=== PATIENT | female | born 1950 | race Caucasian/White ===

== ENCOUNTER 2022-10-04 21:14 | Emergency (ER) | payer OTHER ==
[2022-10-04 21:22] VITALS: BP_SYST 89
--- NOTE | 2022-10-04 21:28 | NUR ---
Patient to ER bed 08 to gown for evaluation. Side rails up. Report given to WANDA ROSALES.
--- NOTE | 2022-10-04 21:40 | NUR ---
Dr. ARELLANO at bedside examining the patient.
--- NOTE | 2022-10-04 22:24 | NUR ---
Dr. CHAVARRIA at bedside examining the patient.
[2022-10-04] MEDS ORDERED: NACL 0.9% 1,000 ML IV ONE (22:45)
--- NOTE | 2022-10-04 22:55 | NUR ---
Patient is back from CT.
[2022-10-04 23:06] LABS: BILIRUBIN,URINE NEGATIVE (NEGATIVE); BLOOD, URINE NEGATIVE (NEGATIVE); CLARITY/URINE SL CLOUDY (CLEAR); COLOR,URINE YELLOW (YELLOW); GLUCOSE,URINE NEGATIVE (NEGATIVE); KETONES,URINE TRACE (NEGATIVE); LEUKOCYTE ESTERASE ,URINE NEGATIVE (NEGATIVE); NITRITE, URINE NEGATIVE (NEGATIVE); PROTEIN URINE TRACE (NEGATIVE)
[2022-10-05] MEDS ORDERED: IBUP-1971 PO (00:14)
[2022-10-05 00:15] VITALS: BP_SYST 132
--- NOTE | 2022-10-05 00:27 | NUR ---
Patient given written and verbal discharge instructions and verbalizes understanding. ER MD discussed with patient the results and treatment provided. Patient in stable condition. ID arm band removed. IV catheter removed intact and dressing applied, no active bleeding. Rx of IBUPROFEN given. Patient educated on pain management and to follow up with PMD. Pain Scale 0/10. Opportunity for questions provided and answered. Medication side effect fact sheet provided.
== END 2022-10-05 00:25 | disposition home or self-care (01) ==
LOC: SED 21:14
DX: R20.0 Anesthesia of skin (principal); I10 Essential (primary) hypertension; Z79.899 Other long term (current) drug therapy
CPT/HCPCS: 99284; 96360; 70450; 82962; 76376; 81003; J7030

== ENCOUNTER 2023-07-28 13:48 | Emergency (ER) | payer OTHER ==
[~2023-07-28] VITALS: Ht 152.4 cm; Wt 59.0 kg
[~2023-07-28 13:48] MED LIST: IBUP-1971 PO
[2023-07-28 13:50] VITALS: BP_SYST 110; PULSE 59; RESP 17; TEMP 97; O2SAT 96
[2023-07-28 15:34] LABS: PROTHROMBIN TIME 9.9 SECS (9.5-12.5)
[2023-07-28 15:36] LABS: ANION GAP 9 (5-15); CALCIUM 8.9 mg/dL (8.4-11.0); CARBON DIOXIDE 29 mmol/L (23-29); CHLORIDE 104 mmol/L (98-107); GLUCOSE 78 mg/dL (74-106); POTASSIUM 3.8 mmol/L (3.5-5.1); SODIUM SERUM 142 mmol/L (136-145); UREA NITROGEN, BLOOD 23 mg/dL (8-21)
[2023-07-28 15:44] LABS: ALCOHOL, BLOOD < 3 mg/dL (<10)
[2023-07-28 15:53] LABS: BILIRUBIN,URINE NEGATIVE (NEGATIVE); BLOOD, URINE NEGATIVE (NEGATIVE); COLOR,URINE YELLOW (YELLOW); GLUCOSE,URINE NEGATIVE (NEGATIVE); KETONES,URINE TRACE (NEGATIVE); LEUKOCYTE ESTERASE ,URINE NEGATIVE (NEGATIVE); NITRITE, URINE NEGATIVE (NEGATIVE); PROTEIN URINE NEGATIVE (NEGATIVE); UROBILINOGEN,URINE 0.2 (0.2-1.0)
[2023-07-28 16:05] LABS: BASOPHILS % (AUTO) 0.7 % (0.0-2.0); EOSINOPHILS % (AUTO) 0.7 % (0.0-4.0); HEMATOCRIT 36.9 % (36-48); HEMOGLOBIN 12.5 g/dL (12.0-16.0); LYMPHOCYTES # (AUTO) 1.3 K/uL (1.0-5.5); LYMPHOCYTES % (AUTO) 22.5 % (20.5-51.5); MEAN CORPUSCULAR HEMOGLOBIN 31 pg (27-31); MEAN CORPUSCULAR HGB CONC 34 % (32-36); MEAN CORPUSCULAR VOLUME 91 fL (79.0-98.0); MONOCYTES # (AUTO) 0.6 K/uL (0.0-1.0); MONOCYTES % (AUTO) 11.3 % (1.7-9.3); NEUTROPHILS # (AUTO) 3.7 K/uL (1.8-7.7); NEUTROPHILS % (AUTO) 64.8 % (40.0-70.0); PLATELET COUNT (AUTO) 236 K/uL (130-430); RED BLOOD CELL COUNT(AUTO) 4.05 MIL/uL (4.2-6.2); RED CELL DISTRIBUTION WIDTH 13.9 % (9.0-15.0); WHITE BLOOD COUNT (AUTO) 5.7 K/uL (4.8-10.8)
[2023-07-28 16:05] LABS: CLARITY/URINE HAZY (CLEAR)
[2023-07-28 16:21] LABS: RBC,URINE NONE SEEN /HPF (0-3)
[2023-07-28 16:22] LABS: BACTERIA,URINE FEW /HPF (None Seen); HYALINE CASTS, URINE 0-10 /LPF (None Seen); MUCUS,URINE 2+ /LPF (None Seen); WBC,URINE 0-3 /HPF (0-3)
[2023-07-28 16:27] LABS: BARBITURATE, URINE NEGATIVE (NEG <=200)
[2023-07-28 16:28] LABS: BENZODIAZEPINE, URINE NEGATIVE (NEG <=150); CANNABINOID, URINE NEGATIVE (NEG <=50); COCAINE, URINE NEGATIVE (NEG <=150); METHAMPHETAMINES SCREEN,URINE NEGATIVE (NEG <=500); OPIATE, URINE NEGATIVE (NEG <=100); PHENCYCLIDINE SCREEN,URINE NEGATIVE (NEG <=25); UR TRICYCLIC ANTIDEPRESSANTS POSITIVE (NEG <=300); URINE AMPHETAMINE NEGATIVE (NEG <=500); URINE METHADONE NEGATIVE (NEG <=200); URINE OXYCODONE SCREEN NEGATIVE (NEG <=100)
[2023-07-28 19:03] VITALS: BP_SYST 108; PULSE 62; RESP 20; TEMP 97; O2SAT 96
== END 2023-07-28 19:04 | disposition home or self-care (01) ==
LOC: SED 13:48
DX: G20.C Parkinsonism, unspecified (principal); R10.84 Generalized abdominal pain; R53.1 Weakness; R45.1 Restlessness and agitation; I10 Essential (primary) hypertension
CPT/HCPCS: 99285; 70450; 71045; 80307; 80048; 81000; 81001; 85025; 85610; 85730; 84484; 36415; 93005; 74176; 81015; G0482

== ENCOUNTER 2023-11-23 12:09 | Emergency (ER) | payer OTHER ==
[~2023-11-23] VITALS: Ht 152.4 cm; Wt 72.6 kg
[2023-11-23 12:30] VITALS: BP_SYST 138; PULSE 64; RESP 18; TEMP 97.4; O2SAT 98
[2023-11-23] MEDS ORDERED: ATOR20TA64 PO (12:46)
[2023-11-23] MEDS ORDERED: METO50CA PO (12:46)
[2023-11-23] MEDS ORDERED: FLUO-408 PO (12:46)
[2023-11-23] MEDS ORDERED: QUET25TA36 PO (12:46)
[2023-11-23] MEDS ORDERED: MEMA5TAB16 PO (12:46)
[2023-11-23] MEDS ORDERED: CARB1TAB33 PO (12:46)
[2023-11-23] MEDS ORDERED: LISI10TA PO (12:46)
[2023-11-23] MEDS ORDERED: LEVO112C4 PO (12:46)
[2023-11-23] MEDS: NACL 0.9% 1,000 ML IV ONE (13:21)
[2023-11-23] MEDS: ONDANSETRON HCL 4 MG/2 ML VIAL IVP ONE (13:22)
[2023-11-23 13:25] LABS: BASOPHILS % (AUTO) 0.7 % (0.0-2.0); EOSINOPHILS % (AUTO) 0.7 % (0.0-4.0); HEMATOCRIT 40.9 % (36-48); HEMOGLOBIN 13.6 g/dL (12.0-16.0); LYMPHOCYTES # (AUTO) 1.1 K/uL (1.0-5.5); LYMPHOCYTES % (AUTO) 19.8 % (20.5-51.5); MEAN CORPUSCULAR HEMOGLOBIN 31 pg (27-31); MEAN CORPUSCULAR HGB CONC 33 % (32-36); MEAN CORPUSCULAR VOLUME 93 fL (79.0-98.0); MONOCYTES # (AUTO) 0.4 K/uL (0.0-1.0); MONOCYTES % (AUTO) 7.4 % (1.7-9.3); NEUTROPHILS # (AUTO) 4.1 K/uL (1.8-7.7); NEUTROPHILS % (AUTO) 71.4 % (40.0-70.0); PLATELET COUNT (AUTO) 326 K/uL (130-430); RED BLOOD CELL COUNT(AUTO) 4.38 MIL/uL (4.2-6.2); RED CELL DISTRIBUTION WIDTH 13.3 % (9.0-15.0); WHITE BLOOD COUNT (AUTO) 5.7 K/uL (4.8-10.8)
[2023-11-23 13:39] LABS: ALANINE AMINOTRANSFERASE 13 U/L (12-78); ALBUMIN 3.7 g/dL (3.4-4.8); ANION GAP 10 (5-15); ASPARTATE AMINOTRANSFERASE 15 U/L (10-37); BILIRUBIN,DIRECT 0.1 mg/dL (0.0-0.3); CALCIUM 9.3 mg/dL (8.4-11.0); CARBON DIOXIDE 28 mmol/L (23-29); CHLORIDE 101 mmol/L (98-107); CREATININE 0.84 mg/dL (0.55-1.30); GLUCOSE 112 mg/dL (74-106); LIPASE 29 U/L (16-77); SODIUM SERUM 139 mmol/L (136-145); TOTAL BILIRUBIN 0.4 mg/dL (0.0-1.0); TOTAL PROTEIN, SERUM 8.2 g/dL (6.4-8.3); UREA NITROGEN, BLOOD 10 mg/dL (8-21)
[2023-11-23 15:07] LABS: BILIRUBIN,URINE NEGATIVE (NEGATIVE); BLOOD, URINE NEGATIVE (NEGATIVE); CLARITY/URINE CLEAR (CLEAR); COLOR,URINE YELLOW (YELLOW); GLUCOSE,URINE NEGATIVE (NEGATIVE); KETONES,URINE NEGATIVE (NEGATIVE); LEUKOCYTE ESTERASE ,URINE NEGATIVE (NEGATIVE); NITRITE, URINE NEGATIVE (NEGATIVE); PH,URINE 7.5 (5.0-8.0); PROTEIN URINE NEGATIVE (NEGATIVE); UROBILINOGEN,URINE 0.2 (0.2-1.0)
[2023-11-23] MEDS ORDERED: ONDA-8 TL (15:13)
[2023-11-23 15:27] VITALS: BP_SYST 153; PULSE 54; RESP 16; TEMP 97.6; O2SAT 95
== END 2023-11-23 15:26 | disposition home or self-care (01) ==
LOC: SED 12:09
DX: K29.00 Acute gastritis without bleeding (principal); R11.2 Nausea with vomiting, unspecified; I10 Essential (primary) hypertension; G20.A1 Parkinson's disease without dyskinesia, without mention of fluctuations; E78.00 Pure hypercholesterolemia, unspecified; E03.9 Hypothyroidism, unspecified; F41.9 Anxiety disorder, unspecified; Z79.899 Other long term (current) drug therapy; Z79.2 Long term (current) use of antibiotics
CPT/HCPCS: 99284; 96374; 96361; 80076; 80048; 81001; 83690; 85025; 36415; 74018; 81003; J2405; J7030